=== PATIENT | male | born 1935 | race Caucasian/White ===

== ENCOUNTER → 2024-08-24 14:20 | Outpatient (REF) | payer MEDICARE, OTHER, SELFPAY ==
[2024-08-24 11:35] LABS: % Eosinophils 0.5 % (0-6); % Immature Granulocytes 0.1 % (0-0.5); % Lymphocytes 87.4 % (20.5-51.1); % Monocytes 1.6 % (1.7-9.3); % Neutrophils 10.4 % (42.2-75.2); Absolute Eosinophils 0.2 10^3/uL (0-0.7); Absolute Lymphocytes 32.7 10^3/uL (1.2-3.4); Absolute Monocytes 0.6 10^3/uL (0.1-0.6); Absolute Neutrophils 3.9 10^3/uL (1.4-6.5); Hemoglobin 9.5 g/dL (13.0-18.0); Mean Corp Hgb Conc. 30.6 g/dL (33.0-37.0); Mean Corpuscular Hgb 28.7 pg (27.0-31.0); Mean Corpuscular Volume 93.7 fL (80.0-94.0); Platelet Count 166 10^3/uL (130-400); Red Blood Cell Count 3.31 10^6/uL (4.70-6.10); Red Cell Dist. Width 16.7 % (11.5-14.5)
[2024-08-24 11:43] LABS: White Blood Cell Count 37.4 10^3/uL (4.8-10.8)
== END ==
LOC: OIDL 14:20
PROVIDERS: ATTENDING PHYSICIAN Internal Medicine Hematology & Oncology
DX: C91.10 Chronic lymphocytic leukemia of B-cell type not having achieved remission (principal)
CPT/HCPCS: 85025